=== PATIENT | male | born 1940 | race African-American/Black ===

== ENCOUNTER → 2017-07-01 | Outpatient (CLI) | payer OTHER ==
[~2017-07-01] MED LIST: BENICAR HCT 251 TAB PO; BENICAR5 MG; KLOR-CON M1010 MEQ PO; LIPITOR 10MG10 MG PO; MEDROL 4MG DOSPA4 MG PO; NORCO 325 MG-7.1 TAB PO; PERCOCET 325 MG1 TAB PO; SLOW-MAG 6464 MG/TAB; TRIBENZOR 10 MG1 TA1; VENTOLIN0.09 MG IH; VIAGRA50 MG PO; VICODIN 5/300
[2017-07-01 20:38] LABS: TROPONIN-I 0.045 ng/mL (0.000-0.034)
== END ==
LOC: ZCOL.LAB 16:55
PROVIDERS: Family Medicine
DX: R07.9 Chest pain, unspecified (principal)

== ENCOUNTER → 2017-07-02 | Outpatient (CLI) | payer OTHER | LOC: ZCOL.LAB 14:44 | DX: R07.9 Chest pain, unspecified (principal) ==

== ENCOUNTER → 2017-09-24 | Outpatient (CLI) | payer OTHER | LOC: COL.RAD 07:30 | DX: R16.0 Hepatomegaly, not elsewhere classified (principal); N28.9 Disorder of kidney and ureter, unspecified; K40.90 Unilateral inguinal hernia, without obstruction or gangrene, not specified as recurrent | CPT/HCPCS: Q9967 ==

== ENCOUNTER → 2017-09-30 | Outpatient (CLI) | payer OTHER | LOC: COL.RAD 08:30 | DX: N28.1 Cyst of kidney, acquired (principal) | CPT/HCPCS: Q9967 ==

== ENCOUNTER 2018-04-28 17:59 | Emergency (ER) | payer MEDICARE, OTHER ==
[~2018-04-28] VITALS: Ht 167.6 cm; Wt 106.8 kg
[2018-04-28 18:05] VITALS: TEMP 96.7
[2018-04-28] MEDS ORDERED: GLUCOPHAGE500 MG/TAB PO (18:14)
[2018-04-28] MEDS ORDERED: KLOR-CON 1010 MEQ PO (18:20)
[2018-04-28 18:39] LABS: ALBUMIN 4.4 gm/dL (3.5-5.0); BILIRUBIN,TOTAL 1.1 mg/dL (0.0-1.0); CALCIUM 9.4 mg/dL (8.4-10.2); POTASSIUM 4.4 mmol/L (3.4-5.0); TOTAL PROTEIN 8.1 gm/dL (6.4-8.2)
[2018-04-28 18:41] LABS: BASO % 0.1 % (0.0-2.0); EOS # 0.1 (0.0-0.7); GRAN # 4.6 (1.4-6.5); GRAN % 67.9 % (42.2-75.2); HEMOGLOBIN 13.2 g/dl (13.5-18.0); LYMPH # 1.5 (1.2-3.4); LYMPH % 22.4 % (20.0-51.0); MEAN CELL VOLUME 96 fl (80.0-100.0); MEAN CORPUSCULAR HEMOGLOBIN 31 pg (27.0-31.0); MEAN CORPUSCULAR HGB CONC 32 g/dl (33.0-37.0); MEAN PLATELET VOLUME 11.7 fl (7.4-10.4); MONO # 0.5 (0.1-0.6); MONO % 7.3 % (1.7-9.3); PLATELET COUNT 182 K/mm3 (130-400); RED BLOOD COUNT 4.28 M/mm3 (4.20-5.60)
[2018-04-28 18:53] LABS: TROPONIN-I 0.047 ng/mL (0.000-0.035)
[2018-04-28] MEDS ORDERED: NEXIUM 20MG20 MG PO (21:23)
[2018-04-28 22:05] VITALS: BP 154/102; PULSE 63
== END 2018-04-28 22:21 | disposition home or self-care (01) ==
LOC: COL.ER 17:59
PROVIDERS: Emergency Medicine
DX: R07.9 Chest pain, unspecified (principal); E11.9 Type 2 diabetes mellitus without complications; Z95.5 Presence of coronary angioplasty implant and graft; Z79.84 Long term (current) use of oral hypoglycemic drugs
CPT/HCPCS: J7030

== ENCOUNTER 2019-05-08 13:11 | Day surgery (SDC) | payer OTHER ==
[~2019-05-08] VITALS: Ht 170.2 cm; Wt 107.5 kg
[~2019-05-08 13:11] MED LIST changes: +GLUCOPHAGE500 MG/TAB PO; +KLOR-CON 1010 MEQ PO; +NEXIUM 20MG20 MG PO; -SLOW-MAG 6464 MG/TAB; +SLOW-MAG 6464 MG/TAB PO
[2019-05-08 13:46] VITALS: BP 147/88; PULSE 59; TEMP 98
--- NOTE | 2019-05-08 14:00 | NUR ---
TO RM AT 1322- CALL LIGHT IN REACH AT BEDSIDE.
[2019-05-08 15:15] VITALS: BP 133/95; PULSE 66; TEMP 97.6
--- NOTE | 2019-05-08 15:15 | NUR ---
Patient arrives to [facility] via cart, accompanied by [facility] RN Vicky. He is alert and oriented. He ambulates to the chair in the room with standby assist. Monitoring is applied - VSS on room air. He is audibly wheezing. Per nurse report and the patient's report, this has been an issue for more than one month. He denies any pain or nausea.
[2019-05-08 15:30] VITALS: BP 147/93; PULSE 65
[2019-05-08 15:45] VITALS: BP 139/90; PULSE 57
--- NOTE | 2019-05-08 16:05 | NUR ---
Patient has met discharge criteria. Discharge instructions discussed; he denies any questions and verbalizes understanding. PIV removed with catheter intact and hemostasis achieved. He changes to his clothing indepedently.
--- NOTE | 2019-05-08 16:09 | NUR ---
Dr. Crump is at the bedside and talks with the patient.
--- NOTE | 2019-05-08 16:20 | NUR ---
Patient is escorted to the exit via wheelchair by staff. He is discharged to home with ride in private vehicle at 1620.
== END 2019-05-08 16:20 | disposition home or self-care (01) ==
LOC: SDCO 13:11
DX: D13.2 Benign neoplasm of duodenum (principal); I10 Essential (primary) hypertension; E11.9 Type 2 diabetes mellitus without complications; E03.9 Hypothyroidism, unspecified; K21.9 Gastro-esophageal reflux disease without esophagitis; M19.90 Unspecified osteoarthritis, unspecified site; Z88.8 Allergy status to other drugs, medicaments and biological substances; Z79.84 Long term (current) use of oral hypoglycemic drugs; Z79.82 Long term (current) use of aspirin; Z80.0 Family history of malignant neoplasm of digestive organs
CPT/HCPCS: J2250; J2704; J7030

== ENCOUNTER → 2019-06-02 | Outpatient (CLI) | payer OTHER | LOC: COL.RAD 14:26 | DX: N32.9 Bladder disorder, unspecified (principal); R16.0 Hepatomegaly, not elsewhere classified | CPT/HCPCS: Q9967 ==

== ENCOUNTER 2020-05-17 13:04 | Outpatient (CLI) | payer OTHER ==
[2020-05-17] VITALS (7 sets, daily range): BP systolic 111–134; BP diastolic 63–91; PULSE 67–79; TEMP 97.4–97.6
[~2020-05-17] VITALS: Ht 170.2 cm; Wt 106.8 kg
== END 2020-05-17 15:19 | disposition home or self-care (01) ==
LOC: EUO 13:04
DX: U07.1 COVID-19 (principal)

== ENCOUNTER → 2020-07-08 | Outpatient (CLI) | payer OTHER | LOC: MC.RAD 14:00 | DX: N63.42 Unspecified lump in left breast, subareolar (principal) ==

== ENCOUNTER → 2020-07-20 | Outpatient (CLI) | payer OTHER | LOC: MC.RAD 07:53 | DX: N63.20 Unspecified lump in the left breast, unspecified quadrant (principal) ==

== ENCOUNTER 2021-03-21 11:00 | Day surgery (SDC) | payer OTHER ==
[2021-03-21] VITALS (14 sets, daily range): BP systolic 122–153; BP diastolic 70–103; PULSE 52–65; TEMP 98.5
[~2021-03-21] VITALS: Ht 170.3 cm; Wt 103.3 kg
[2021-03-21] MEDS ORDERED: GLUCOPHAGE XR500 M1 PO (12:00)
[2021-03-21] MEDS ORDERED: SYNTHROID0.05 MG/TA PO (12:00)
[2021-03-21] MEDS ORDERED: ALDACTONE 25MG25 M1 PO (12:02)
[2021-03-21] MEDS ORDERED: DIOVAN 160MG160 MG PO (12:02)
[2021-03-21 12:05] LABS: HEMATOCRIT 40.5 % (42.0-52.0); HEMOGLOBIN 13.1 g/dl (13.5-18.0); MEAN CELL VOLUME 92 fl (80.0-100.0); MEAN CORPUSCULAR HEMOGLOBIN 30 pg (27-31); MEAN CORPUSCULAR HGB CONC 32 g/dl (33.0-37.0); MEAN PLATELET VOLUME 9.8 fl (7.4-10.4); PLATELET COUNT 266 K/mm3 (130-400); RED BLOOD COUNT 4.41 M/mm3 (4.20-5.60); REDCELL DISTRIBUTION WIDTH-CV 12.7 % (11.5-14.5)
[2021-03-21 12:24] LABS: INR 1.4 (0.8-3.0); PROTHROMBIN TIME 15.7 SECONDS (9.7-12.8)
[2021-03-21 12:26] LABS: PARTIAL THROMBOPLASTIN TIME 33.8 SECONDS (26.0-37.0)
[2021-03-21 12:33] LABS: CALCIUM 9.6 mg/dL (8.4-10.2); CREATININE, serum 1.27 mg/dL (0.72-1.25); POTASSIUM 4.6 mmol/L (3.5-4.5)
--- NOTE | 2021-03-21 12:49 | NUR ---
SEE MERGE FOR ALL MEDICATION ADMINISTRATION TIMES, INTRA AND POST SEDATION ASSESSMENTS
[2021-03-21] MEDS ORDERED: HCTZ 25MG TAB25 MG PO (15:00)
--- NOTE | 2021-03-21 17:48 | NUR ---
Report to Madelyn Jean.
--- NOTE | 2021-03-21 19:36 | NUR ---
PT care was assumed from Tita KABA at 1750. pt resting comfortably. rt groin site is soft, dressing clean and dry, cms intact distal. Bedrest was concluded at 1845, however when pt stood up, there was bleeding from rt groin site which soaked dressing. pt laid back down and pressure was applied to rt groin for 20 minutes. at conclusion of that time period, rt groin site remains soft and cms remains intact distal. Vitals stable. . site cleaned with chlorhexadine and a new sterile gauze dressing was applied. I paged Dr. Mittal and notified him of bleed and intervention taken. Per Dr. Mittal it is okay to discharge pt with emphasis on instructions to take it easy. Okay to have pt get up again and walk around again, and discharge if no problems.
--- NOTE | 2021-03-21 20:20 | NUR ---
Pt has been able to stand and ambulate in nurses station with steady gait, no further bleeding from rt groin puncture sites. rt groin remains soft with clean and dry dressing, and cms intact. IV is dc'd with cath intact dressing applied. Pt and verbalize again understanding of dc/rx and fu instructions. Pt escorted to exit via wheelchair.
== END 2021-03-21 20:33 | disposition home or self-care (01) ==
LOC: COL.CAR 11:00
PROVIDERS: Internal Medicine Cardiovascular Disease
DX: I27.20 Pulmonary hypertension, unspecified (principal); I51.7 Cardiomegaly; I10 Essential (primary) hypertension; R94.39 Abnormal result of other cardiovascular function study; R06.02 Shortness of breath; R07.9 Chest pain, unspecified; E11.9 Type 2 diabetes mellitus without complications; E78.5 Hyperlipidemia, unspecified; E07.9 Disorder of thyroid, unspecified; Z79.890 Hormone replacement therapy; Z79.84 Long term (current) use of oral hypoglycemic drugs; Z79.899 Other long term (current) drug therapy
CPT/HCPCS: C1760; C1894; J1644; J2250; J3010; Q9967

== ENCOUNTER 2021-10-26 09:56 | Inpatient (IN) | payer OTHER ==
[~2021-10-26] VITALS: Ht 170.2 cm; Wt 107.2 kg
[~2021-10-26 09:56] MED LIST changes: +ALDACTONE 25MG25 M1 PO; +DIOVAN 160MG160 MG PO; +GLUCOPHAGE XR500 M1 PO; +HCTZ 25MG TAB25 MG PO; +SYNTHROID0.05 MG/TA PO
[2021-10-26 10:34] LABS: BASO % 0.4 % (0.0-2.0); EOS # 0.1 K/mm3 (0.0-0.7); EOS % 2.2 % (0.0-4.0); GRAN # 3.5 K/mm3 (1.4-6.5); HEMATOCRIT 39.2 % (42.0-52.0); HEMOGLOBIN 13.1 g/dl (13.5-18.0); LYMPH # 1.4 K/mm3 (1.2-3.4); LYMPH % 24.4 % (20.0-51.0); MEAN CELL VOLUME 94 fl (80.0-100.0); MEAN CORPUSCULAR HEMOGLOBIN 31 pg (27-31); MEAN CORPUSCULAR HGB CONC 33 g/dl (33.0-37.0); MEAN PLATELET VOLUME 10.2 fl (7.4-10.4); MONO # 0.6 K/mm3 (0.1-0.6); MONO % 10.6 % (1.7-9.3); PLATELET COUNT 201 K/mm3 (130-400); RED BLOOD COUNT 4.19 M/mm3 (4.20-5.60); REDCELL DISTRIBUTION WIDTH-CV 12.7 % (11.5-14.5)
[2021-10-26 11:03] LABS: ALBUMIN 3.8 gm/dL (3.4-4.8); BILIRUBIN,TOTAL 0.7 mg/dL (0.2-1.2); CALCIUM 9.8 mg/dL (8.4-10.2); CREATININE, serum 1.29 mg/dL (0.72-1.25); POTASSIUM 4.5 mmol/L (3.5-4.5); TOTAL PROTEIN 7.3 gm/dL (6.2-8.1)
[2021-10-26 11:11] LABS: TROPONIN-I 0.049 ng/mL (0.00-0.033)
[2021-10-26] MEDS ORDERED: FLONASE NASAL S16 GM NS (15:53)
[2021-10-26] MEDS ORDERED: FLOMAX 0.40.4 MG/CAP PO (15:53)
[2021-10-26 15:56] VITALS: BP 103/57; PULSE 51; TEMP 97.4
--- NOTE | 2021-10-26 16:09 | NUR ---
PT ADMITTED TO UNIT. ADMISSION INTAKE AND ASSESSMENT COMPLETED. PT ORIENTED TO ROOM. MED REC UPDATED. PT SOB AND HAS DIFFICULTY TAKING DEEP BREATHES. UPDATED PT ON POC. DENIES ANY OTHER PAIN OR NEEDS AT THIS TIME. WILL CONTINUE TO MONITOR.
[2021-10-26 20:38] VITALS: BP 120/66; PULSE 58; TEMP 98
[2021-10-27] MEDS ORDERED: HCTZ 25MG TAB25 MG PO (00:28)
[2021-10-27] MEDS ORDERED: EXFORGE 10 MG-31 TAB PO (00:28)
[2021-10-27] MEDS ORDERED: INSPRA25 MG PO (00:28)
[2021-10-27] MEDS ORDERED: ZEBETA 5MG5 MG PO (00:32)
[2021-10-27 00:43] VITALS: BP 126/82; PULSE 72; TEMP 98
[2021-10-27 04:11] VITALS: BP 115/70; PULSE 103; TEMP 98.4
--- NOTE | 2021-10-27 05:00 | NUR ---
ASSESSMENT COMPLETE FOR FUNCTIONAL DIRECTOR. PT RESTING IN BED SLEEPING. PT DENIED GENERAL PAIN, CHEST PAIN, PALPITATIONS, SOB, N,V,D OR DIZZINESS. PT HAD A FEW EPISODES OF BRADYCARDIA (42-44 BPM). PT WAS ASLEEP AND ASYMPTOMATIC. HOSPITALIST INFORMED. WILL CONTINUE TO MONITOR. PT EXPRESSED NO ADDITIONAL NEEDS. CALL LIGHT WITHIN REACH.
[2021-10-27 07:02] LABS: BASO % 0.3 % (0.0-2.0); EOS # 0.1 K/mm3 (0.0-0.7); EOS % 2.3 % (0.0-4.0); GRAN # 3.5 K/mm3 (1.4-6.5); HEMATOCRIT 39.2 % (42.0-52.0); HEMOGLOBIN 12.8 g/dl (13.5-18.0); LYMPH # 1.4 K/mm3 (1.2-3.4); LYMPH % 24.4 % (20.0-51.0); MEAN CELL VOLUME 95 fl (80.0-100.0); MEAN CORPUSCULAR HEMOGLOBIN 31 pg (27-31); MEAN CORPUSCULAR HGB CONC 33 g/dl (33.0-37.0); MEAN PLATELET VOLUME 10.7 fl (7.4-10.4); MONO # 0.7 K/mm3 (0.1-0.6); MONO % 11.7 % (1.7-9.3); PLATELET COUNT 197 K/mm3 (130-400); RED BLOOD COUNT 4.11 M/mm3 (4.20-5.60); REDCELL DISTRIBUTION WIDTH-CV 12.6 % (11.5-14.5)
[2021-10-27 07:25] LABS: CALCIUM 9.5 mg/dL (8.4-10.2); CREATININE, serum 1.25 mg/dL (0.72-1.25); POTASSIUM 4.3 mmol/L (3.5-4.5)
[2021-10-27 08:00] VITALS: BP 108/64; PULSE 78; TEMP 98.3
[2021-10-27 08:00] LABS: CHOLESTEROL RISK RATIO 4.2
[2021-10-27] MEDS ORDERED: LASIX 40MG TABL40 MG PO (10:32)
[2021-10-27] MEDS ORDERED: ASPIRIN 81M81 MG/TA2 PO (10:34)
[2021-10-27] MEDS ORDERED: LIPITOR 80MG80 MG PO (10:35)
[2021-10-27 12:00] VITALS: BP 112/71; PULSE 53
--- NOTE | 2021-10-27 13:35 | NUR ---
Disbursing Agent met with patient to discuss discharge planning. Patient lives in [place] with his , Roya (ph#[phone]) [address] Dr. Grimm for primary care. Patient obtains medications from [facility] with no difficulties and does not use any DME. Patient is independent with ADLS and plans to discharge home. Patient does not have Advance Directives and is not interested in DPOA-HC form at this time. Discharge Plan: Home
--- NOTE | 2021-10-27 15:11 | NUR ---
Delfina: Jew Situation: Chicken Cleaner stopped by room on rounds Background: Pt was resting and content Assessment: Pt appreciated the visit Recommendation: Chicken Cleaner will follow up as needed
--- NOTE | 2021-10-27 15:19 | NUR ---
Pt meets criteria for discharge. INT DC on left forearm. CDI, no redness or edema. Pt denies any pain or disconfort at the time, no N/V or dizziness. A&O X4. VSS, ambulating without assistance. Pt education provided on his condition. Staff member scorted him and his spouse out.
== END 2021-10-27 14:30 | disposition home or self-care (01) | DRG 291 ==
LOC: COL.ER 09:56 → MEDICAL 13:35
PROVIDERS: Physician Assistant; ADMIT Student in an Organized Health Care Education/Training Program
DX: I13.0 Hypertensive heart and chronic kidney disease with heart failure and stage 1 through stage 4 chronic kidney disease, or unspecified chronic kidney disease (principal); I50.31 Acute diastolic (congestive) heart failure; N17.9 Acute kidney failure, unspecified; E85.4 Organ-limited amyloidosis; I43 Cardiomyopathy in diseases classified elsewhere; N18.9 Chronic kidney disease, unspecified; I25.10 Atherosclerotic heart disease of native coronary artery without angina pectoris; E78.5 Hyperlipidemia, unspecified; I27.20 Pulmonary hypertension, unspecified; I45.10 Unspecified right bundle-branch block; E03.9 Hypothyroidism, unspecified; M19.90 Unspecified osteoarthritis, unspecified site; D86.9 Sarcoidosis, unspecified; E83.119 Hemochromatosis, unspecified; E11.22 Type 2 diabetes mellitus with diabetic chronic kidney disease; I08.3 Combined rheumatic disorders of mitral, aortic and tricuspid valves; Z79.890 Hormone replacement therapy; Z79.84 Long term (current) use of oral hypoglycemic drugs; Z72.89 Other problems related to lifestyle; Z23 Encounter for immunization
CPT/HCPCS: OP; G0378; J1940

== ENCOUNTER 2023-10-17 14:57 | Inpatient (IN) | payer BC, MEDICARE ==
[~2023-10-17] VITALS: Ht 165.1 cm; Wt 100.9 kg
[~2023-10-17 14:57] MED LIST changes: +ASPIRIN 81M81 MG/TA2 PO; +EXFORGE 10 MG-31 TAB PO; +FLOMAX 0.40.4 MG/CAP PO; +FLONASE NASAL S16 GM NS; +INSPRA25 MG PO; +LASIX 40MG TABL40 MG PO; +LIPITOR 80MG80 MG PO; +VYNDAMAX61 MG PO; +ZEBETA 5MG5 MG PO
[2023-10-17 15:29] LABS: BASO % 0.3 % (0.0-2.0); EOS # 0.1 K/mm3 (0.0-0.7); GRAN # 4.5 K/mm3 (1.4-6.5); GRAN % 65.1 % (42.2-75.2); HEMATOCRIT 41.2 % (42.0-52.0); HEMOGLOBIN 13.2 g/dl (13.5-18.0); LYMPH # 1.6 K/mm3 (1.2-3.4); LYMPH % 22.7 % (20.0-51.0); MEAN CELL VOLUME 95 fl (80.0-100.0); MEAN CORPUSCULAR HEMOGLOBIN 30 pg (27-31); MEAN CORPUSCULAR HGB CONC 32 g/dl (33.0-37.0); MEAN PLATELET VOLUME 10.6 fl (7.4-10.4); MONO # 0.7 K/mm3 (0.1-0.6); MONO % 9.6 % (1.7-9.3); PLATELET COUNT 212 K/mm3 (130-400); RED BLOOD COUNT 4.34 M/mm3 (4.20-5.60)
[2023-10-17] MEDS ORDERED: Aspirin 325 MG TAB PO ONE (15:30)
[2023-10-17 15:32] LABS: INR 1.5 (0.8-3.0); PROTHROMBIN TIME 15.7 SECONDS (9.7-12.8)
[2023-10-17 15:35] LABS: PARTIAL THROMBOPLASTIN TIME 36.2 SECONDS (26.0-37.0)
[2023-10-17 15:48] LABS: ALBUMIN 3.9 g/dL (3.4-4.8); BILIRUBIN,TOTAL 1.2 mg/dL (0.2-1.2); CALCIUM 10.2 mg/dL (8.4-10.2); CREATININE, serum 1.46 mg/dL (0.72-1.25); POTASSIUM 4.5 mEq/L (3.5-4.5); TOTAL PROTEIN 7.7 g/dl (6.2-8.1)
[2023-10-17 16:10] LABS: TROPONIN-I 0.088 ng/mL (0.00-0.033)
[2023-10-17] MEDS ORDERED: Magnes Hydrox (MOM) 80 MG/ML 30 ML CUP PO PRN (18:00)
[2023-10-17] MEDS ORDERED: Morphine 4 MG/ML VIAL IV PRN (18:00)
[2023-10-17] MEDS ORDERED: Acetaminophen 500 MG TAB PO PRN (18:00)
[2023-10-17] MEDS ORDERED: Mag/Al Hydrox/Simeth Susp 30 ML CUP PO PRN (18:00)
[2023-10-17] MEDS ORDERED: Ondansetron 4 MG/2 ML VIAL IV PRN ×2 (18:00)
[2023-10-17] MEDS ORDERED: 1/2 NS 1,000 ML IV SCH (18:00)
[2023-10-17] MEDS ORDERED: oxyCODONE 5 MG TAB PO PRN (18:00)
[2023-10-17 18:12] VITALS: BP 143/83; PULSE 64; TEMP 97.9
[2023-10-17 20:04] VITALS: BP 118/76; PULSE 58; TEMP 97.3
[2023-10-17 21:00] VITALS: BP_SYST 118
[2023-10-17] MEDS ORDERED: Atorvastatin 80 MG TAB PO SCH (21:00)
[2023-10-17] MEDS ORDERED: Melatonin 3 MG TAB PO PRN (21:00)
[2023-10-17] MEDS ORDERED: Docusate Sodium 100 MG CAP PO SCH (21:00)
[2023-10-17] MEDS ORDERED: Insulin Lispro (HumaLOG) SQ SCH (21:00)
[2023-10-17] MEDS ORDERED: Famotidine 20 MG TAB PO SCH (21:00)
--- NOTE | 2023-10-17 22:33 | NUR ---
Assumed care of this pt at 1900, pt is alert and oriented x4 and is accompanied by his . Reliable historian who is not reporting any chest discomfort or pain at this time. He is reporting mild epigastric pain rated 4/10. Pt denies need to be medicated at this time r/t pain. Reports his last bowel movement was today and it was regular. LR running at 60ml/hr per orders to patent Right A/C. pt has voided and ate and reports he feels ok at this time. Critical troponin of .089 called by the lab at 2216, provider Ricardo CARLSON notified. Call light within reach and bed in lowest position.
[2023-10-18] VITALS (14 sets, daily range): BP systolic 111–138; BP diastolic 58–81; PULSE 55–71; TEMP 97.8–98.4
--- NOTE | 2023-10-18 00:41 | NUR ---
HOSPITALIST AP CARLSON NOTIFIED OF HIGH CRITICAL TROPONIN OF 0.088. NO NEW ORDERS RECIEVED.
[2023-10-18 06:39] LABS: INR 1.5 (0.8-3.0); PROTHROMBIN TIME 16.2 SECONDS (9.7-12.8)
[2023-10-18 06:43] LABS: CALCIUM 9.4 mg/dL (8.4-10.2); CHOLESTEROL RISK RATIO 2.6; CREATININE, serum 1.15 mg/dL (0.72-1.25); MAGNESIUM 1.9 mg/dL (1.6-2.6); POTASSIUM 4.1 mEq/L (3.5-4.5)
[2023-10-18] MEDS ORDERED: Glucagon 1 MG VIAL IM PRN (08:00)
[2023-10-18] MEDS ORDERED: Dextrose 50% Water 25 GM/50 ML SYRINGE IV PRN (08:00)
[2023-10-18] MEDS ORDERED: Dextrose (Glucose) 15 GM (4 x 3.75 GM) Chewable TABLET PACK PO PRN (08:00)
--- NOTE | 2023-10-18 09:27 | NUR ---
Patient resting in bed, alert and oriented x 4, states NPO from midnight, he does not drink coffe. States his pian is from 1-10 and he just feels it when he takes a deep breath. Getting fluids 60 mls/hr, Tele in place SB. Assessment completed, no further needs at this time. Calll light within reach. Per Supervisor Alteration Workroom team pt will have a stress test later today. Pt aware.
[2023-10-18] MEDS ORDERED: SLOW-MAG71.5 MG PO (10:17)
[2023-10-18] MEDS ORDERED: Regadenoson 0.08 MG/ML 5 ML SYRINGE IV SCH (12:14)
--- NOTE | 2023-10-18 13:30 | NUR ---
D: Special Library Librarian stopped by room on rounds. A: Pt was resting and content. Pt has no needs right now. P: Special Library Librarian informed pt that if he needed anything to let his nurse know. Special Library Librarian will follow up as needed.
[2023-10-18] MEDS ORDERED: NITROSTAT0.4 MG/TAB SL (14:20)
--- NOTE | 2023-10-18 15:16 | NUR ---
Social work student and social science teacher met with patient to discuss discharge planning. Patient lives in [place] with his Roya. Patient sees Dr. Grimm for primary care and gets medications from [facility] with no difficulties. Patient has [employer] [facility] for primary and Medicare A and B for secondary. Patient uses does not use any DME and is independent with ADLS and driving. Patient has DPOA-HC which designates Roya. Patient plans to return home at time of discharge. Discharge plan: home
--- NOTE | 2023-10-18 15:23 | NUR ---
Patient and were provided with discharge information, all questeions answred. IV access and telemetry were discontinued.
== END 2023-10-18 15:26 | disposition home or self-care (01) | DRG 282 ==
LOC: COL.ER 14:57 → MEDICAL 17:09
PROVIDERS: Family Medicine; ADMIT Internal Medicine
DX: I21.4 Non-ST elevation (NSTEMI) myocardial infarction (principal); I10 Essential (primary) hypertension; E78.5 Hyperlipidemia, unspecified; I25.10 Atherosclerotic heart disease of native coronary artery without angina pectoris; E07.9 Disorder of thyroid, unspecified; E11.9 Type 2 diabetes mellitus without complications; Z79.84 Long term (current) use of oral hypoglycemic drugs; N18.30 Chronic kidney disease, stage 3 unspecified
CPT/HCPCS: A9500-JZ; J1650; J2785